=== PATIENT | female | born 1995 | race American Indian/Alaskan Native ===

== ENCOUNTER 2017-08-27 20:02 | Emergency (ER) | payer BC ==
[2017-08-27] MEDS ORDERED: DILAUDID IM ONE (20:32)
[2017-08-27] MEDS ORDERED: ATIVAN IM ONE (20:32)
[2017-08-27] MEDS ORDERED: NACL 0.9% 1000 ML 1,000 ML IV ONE (20:54)
[2017-08-27] MEDS ORDERED: DIPRIVAN 10 MG/ML IV ONE (20:55)
--- NOTE | 2017-08-27 20:55 | XRay Report ---
FINAL REPORT EXAM: XR SHOULDER 2+V RT HISTORY: right shoulder pain TECHNIQUE: Right shoulder three views PRIORS: None. FINDINGS: There is acute anterior dislocation the humerus at the glenohumeral joint space. No fractures are identified. Adjacent bony and soft tissue structures are unremarkable. AC joint appears intact IMPRESSION: . Acute anterior shoulder dislocation
--- NOTE | 2017-08-27 23:11 | XRay Report ---
FINAL REPORT EXAM: XR SHOULDER 2+V RT HISTORY: S/P reduction TECHNIQUE: Three views right shoulder PRIORS: Comparison is dated August 27, 2017 FINDINGS: There is been complete reduction of previously described dislocation. No acute fracture identified. The acromioclavicular joint is intact. Adjacent bony and soft tissue structures are unremarkable. IMPRESSION: Reduction of previously described dislocation
[2017-08-28] VITALS: BP 120/78
--- NOTE | 2017-08-28 00:01 | Emergency Department Report ---
HPI - General Chief Complaint: Shoulder Injury Time Seen by Provider: 08/27/17 20:18 - HPI HPI: The patient is a 22-year-old female presents for evaluation of shoulder pain. The patient reports right shoulder pain began at the facility of her.. She states that her fall and pain began one hour ago, and her pain has been constant since, 11/23 in severity, concentrated to the outside right shoulder, throbbing in quality, exacerbated with attempting movement of the right arm at the shoulder joint. The patient iced trauma elsewhere, headache, chest pain, dyspnea, back pain, abdominal pain. ED Past Medical Hx - Past Medical History Previous Medical History?: No - Surgical History Past Surgical History?: No - Social History Smoking Status: Current Every Day Smoker Substance Use Type: None - Medications Home Medications: Home Medications Medication Instructions Recorded Confirmed Last Taken Type HYDROcodone/APAP 5-325 [[place] 1 each PO Q6HR PRN #14 tablet 08/27/17 Unknown Rx 5/325] Ibuprofen [Motrin] 800 mg PO Q8HR PRN #15 tablet 08/27/17 Unknown Rx ED Review of Systems ROS: Stated complaint: DISLOCATED SHOULDER Other details as noted in HPI Constitutional: denies: fever ENT: denies: throat or neck pain Respiratory: denies: cough, shortness of breath Cardiovascular: denies: chest pain Endocrine: denies unexplained weight loss or gain Gastrointestinal: denies: abdominal pain, nausea Genitourinary: denies: dysuria Musculoskeletal: reports right shoulder pain denies: leg swelling Skin: denies: rash Neurological: denies: headache Hematological/Lymphatic: denies: easy bleeding or easy bruising Psych: denies sadness or hopelessness Physical Exam - Physical Exam Vital Signs: Vital Signs 08/27/17 08/27/17 08/27/17 20:07 20:32 20:46 Temperature 98 F Temperature [ Pre-Procedure] Pulse Rate 100 H Pulse Rate [Pre -Procedure] Respiratory 20 Rate Respiratory Rate [Pre- Procedure] Blood Pressure 128/88 Blood Pressure [Pre-Procedure] O2 Sat by Pulse 100 99 100 Oximetry O2 Sat by Pulse Oximetry [Pre- Procedure] 08/27/17 08/27/17 08/27/17 20:55 21:00 21:16 Temperature Temperature [ Pre-Procedure] Pulse Rate 66 57 L Pulse Rate [Pre -Procedure] Respiratory 18 13 14 Rate Respiratory Rate [Pre- Procedure] Blood Pressure Blood Pressure [Pre-Procedure] O2 Sat by Pulse 99 99 Oximetry O2 Sat by Pulse Oximetry [Pre- Procedure] 08/27/17 08/27/17 08/27/17 21:30 21:46 22:00 Temperature Temperature [ Pre-Procedure] Pulse Rate 61 67 Pulse Rate [Pre -Procedure] Respiratory 24 27 H 26 H Rate Respiratory Rate [Pre- Procedure] Blood Pressure Blood Pressure [Pre-Procedure] O2 Sat by Pulse 100 100 100 Oximetry O2 Sat by Pulse Oximetry [Pre- Procedure] 08/27/17 08/27/17 08/27/17 22:16 22:20 22:30 Temperature Temperature [ 98.4 F Pre-Procedure] Pulse Rate 80 64 Pulse Rate [Pre 70 -Procedure] Respiratory 13 15 Rate Respiratory 18 Rate [Pre- Procedure] Blood Pressure 143/84 Blood Pressure 142/99 [Pre-Procedure] O2 Sat by Pulse 100 100 Oximetry O2 Sat by Pulse 99 Oximetry [Pre- Procedure] 08/27/17 22:45 Temperature Temperature [ Pre-Procedure] Pulse Rate 53 L Pulse Rate [Pre -Procedure] Respiratory 18 Rate Respiratory Rate [Pre- Procedure] Blood Pressure 139/90 Blood Pressure [Pre-Procedure] O2 Sat by Pulse 100 Oximetry O2 Sat by Pulse Oximetry [Pre- Procedure] Physical Exam: General: well-nourished, well-developed, no acute distress Head: Normocephalic, atraumatic Eyes: normal sclera ENT: Mucous membranes are pink and moist Neck: trachea midline, neck supple, No neck stiffness, no cervical adenopathy Respiratory: Breath sounds equal bilaterally, no wheezing, rales, or rhonchi Cardio: S1 and S2 present, no murmurs, rubs, gallops, capillary refill is brisk Abdomen: Normoactive bowel sounds, soft abdomen, no rigidity, no guarding or rebound tenderness Musc: right shoulder appears deformed and anteriorly displaced, tenderness to palpation presents to the anterior and posterior joint line of the right shoulder, secondary to a syncopal motor function, pulses intact in the right arm distal to the right shoulder, no swelling or right arm pitting edema Skin: No rash Neuro: no facial drooping, normal speech Psych: Normal affect ED Course Vital Signs 08/27/17 08/27/17 08/27/17 20:07 20:32 20:46 Temperature 98 F Temperature [ Pre-Procedure] Pulse Rate 100 H Pulse Rate [Pre -Procedure] Respiratory 20 Rate Respiratory Rate [Pre- Procedure] Blood Pressure 128/88 Blood Pressure [Pre-Procedure] O2 Sat by Pulse 100 99 100 Oximetry O2 Sat by Pulse Oximetry [Pre- Procedure] 08/27/17 08/27/17 08/27/17 20:55 21:00 21:16 Temperature Temperature [ Pre-Procedure] Pulse Rate 66 57 L Pulse Rate [Pre -Procedure] Respiratory 18 13 14 Rate Respiratory Rate [Pre- Procedure] Blood Pressure Blood Pressure [Pre-Procedure] O2 Sat by Pulse 99 99 Oximetry O2 Sat by Pulse Oximetry [Pre- Procedure] 08/27/17 08/27/17 08/27/17 21:30 21:46 22:00 Temperature Temperature [ Pre-Procedure] Pulse Rate 61 67 Pulse Rate [Pre -Procedure] Respiratory 24 27 H 26 H Rate Respiratory Rate [Pre- Procedure] Blood Pressure Blood Pressure [Pre-Procedure] O2 Sat by Pulse 100 100 100 Oximetry O2 Sat by Pulse Oximetry [Pre- Procedure] 08/27/17 08/27/17 08/27/17 22:16 22:20 22:30 Temperature Temperature [ 98.4 F Pre-Procedure] Pulse Rate 80 64 Pulse Rate [Pre 70 -Procedure] Respiratory 13 15 Rate Respiratory 18 Rate [Pre- Procedure] Blood Pressure 143/84 Blood Pressure 142/99 [Pre-Procedure] O2 Sat by Pulse 100 100 Oximetry O2 Sat by Pulse 99 Oximetry [Pre- Procedure] 08/27/17 22:45 Temperature Temperature [ Pre-Procedure] Pulse Rate 53 L Pulse Rate [Pre -Procedure] Respiratory 18 Rate Respiratory Rate [Pre- Procedure] Blood Pressure 139/90 Blood Pressure [Pre-Procedure] O2 Sat by Pulse 100 Oximetry O2 Sat by Pulse Oximetry [Pre- Procedure] - Moderate Sedation Indications: fracture/dislocation redu Presedation Evaluation: Anteriorly displaced right shoulder ASA Class: I Mallampati Airway Score: 1 Time of Last PO Intake: 16:00 Preparation: ekg monitor applied, pulse oximeter, capnometry used, supplemental O2 applied, suction/airway equipment at bedside, IV secured IV Propofol Dose (mgs): 6 Complications: none Patient Tolerated Procedure: well, no complications Additional Comments: Patient tolerated well without issue - Orthopedic Joint Reduction Joint #1 Consent Obtained: verbal consent, written consent Time Out Performed: Yes (time out at 2119, end time 2141) Side: right Joint Reduction Location: shoulder Analgesia: moderate sedation Shoulder Technique Used (if applicable): traction/counter-traction Post-Reduction Neuro Exam: intact Post-Reduction Vascular Exam: intact Post Reduction X-Ray Obtained: Yes Post Reduction X-Ray Results: reduced Splint Applied: No (shoulder sling) Patient Tolerated Procedure: well, no complications ED Medical Decision Making - Medical Decision Making The patient was seen and examined by myself. The patient is placed on a ekg monitor and continuous pulse ox. On initial evaluation, the patient was found to be in no distress. Evaluation orders were placed. The patient is given IM Dilaudid for pain. X-ray of the right shoulder reveals a anteriorly dislocated right shoulder. The patient is consented for conscious sedation and shoulder reduction. Dr. Erickson was present at bedside and assisted with the shoulder reduction. The shoulder reduction was performed under conscious sedation without incident. The patient tolerated the procedure well. Repeat x- ray was obtained and revealed appropriate reduction of the right shoulder and appropriate alignment. The patient was reexamined and found to have intact sensation, motor function, and pulses in the distal right arm postreduction. The patient was placed in a right arm sling. The patient was reevaluated and reported that their symptoms were markedly improved. The patient is stable for discharge with outpatient follow-up. The patient is given follow-up and return instructions. The patient expressed understanding and agreed with the plan. The patient is discharged in stable condition. Critical care attestation.: If time is entered above; I have spent that time in minutes in the direct care of this critically ill patient, excluding procedure time. ED Disposition Clinical Impression: Acute pain of right shoulder due to trauma Anterior dislocation of right shoulder Qualifiers: Encounter type: initial encounter Qualified Code(s): S43.014A - Anterior dislocation of right humerus, initial encounter Disposition: TO HOME OR SELFCARE Is pt being admited?: No Does the pt Need Aspirin: No Condition: Stable Instructions: Shoulder Dislocation (ED), Arthralgia (ED) Referrals: SASKIA ESTRADA MD [Staff Physician] - 3-5 Days Time of Disposition: 23:09
== END 2017-08-27 23:56 | disposition home or self-care (01) ==
LOC: ED 20:02
DX: S43.014A Anterior dislocation of right humerus, initial encounter (principal); F17.200 Nicotine dependence, unspecified, uncomplicated; W01.198A Fall on same level from slipping, tripping and stumbling with subsequent striking against other object, initial encounter; Y93.89 Activity, other specified; Y92.89 Other specified places as the place of occurrence of the external cause; Y99.8 Other external cause status
CPT/HCPCS: 23650; 73030; 93005; 93010; 96361; 96372; 96374; 99284; J1170; J2060; J2704; J7030